=== PATIENT | female | born 1970 | race Caucasian/White ===

== ENCOUNTER 2017-03-02 17:17 | Emergency (ER) | payer BC ==
[~2017-03-02] VITALS: Ht 172.7 cm; Wt 94.3 kg
[2017-03-02] MEDS ORDERED: LIDO:MAALOX:DONNATAL 1:1:1 15 ML SINGLE DOSE SWSW ONE (18:00)
[2017-03-02] MEDS ORDERED: ASPIRIN CHEWABLE 81 MG TABLET. PO ONE (18:00)
[2017-03-02 18:07] LABS: BASO % 1 % (0-3); EOS % 1 % (0-3); HEMATOCRIT 37.9 % (36.0-47.0); HEMOGLOBIN 12.6 g/dL (12.0-15.5); LYMPH # 1.6 x10^3/uL (1.0-4.8); LYMPH % 24 % (24-48); MEAN CORPUSCULAR HEMOGLOBIN 30 pg (25-35); MEAN CORPUSCULAR HGB CONC 33 g/dL (31-37); MEAN CORPUSCULAR VOLUME 90 fL (79-100); MONO % 7 % (0-9); NEUT % 67 % (31-73); PLATELET COUNT 175 x10^3/uL (140-400); RED BLOOD COUNT 4.22 x10^6/uL (3.50-5.40); RED CELL DISTRIBUTION WIDTH 13.8 % (11.5-14.5); WHITE BLOOD COUNT 6.5 x10^3/uL (4.0-11.0)
[2017-03-02 18:17] LABS: CREATININE 0.7 mg/dL (0.6-1.0); GFR 90.5; POTASSIUM 3.4 mmol/L (3.5-5.1)
[2017-03-02 18:25] LABS: ALBUMIN 3.8 g/dL (3.4-5.0); ALBUMIN/GLOBULIN RATIO 1.1 (1.0-1.7); TOTAL BILIRUBIN 0.5 mg/dL (0.2-1.0); TOTAL PROTEIN 7.3 g/dL (6.4-8.2)
[2017-03-02 19:30] VITALS: BP 122/57
--- NOTE | 2017-03-02 19:32 | PHYS DOC ---
Past Medical History Past Medical History: Arthritis Past Surgical History: No Surgical History Alcohol Use: None Drug Use: None Adult General Chief Complaint Chief Complaint: CHEST PAIN HPI HPI Patient is a 46 year old [f__sex] who presents with [] Review of Systems Review of Systems Constitutional: Denies fever or chills [] Eyes: Denies change in visual acuity, redness, or eye pain [] HENT: Denies nasal congestion or sore throat [] Respiratory: Denies cough or shortness of breath [] Cardiovascular: No additional information not addressed in HPI [] GI: Denies abdominal pain, nausea, vomiting, bloody stools or diarrhea [] : Denies dysuria or hematuria [] Musculoskeletal: Denies back pain or joint pain [] Integument: Denies rash or skin lesions [] Neurologic: Denies headache, focal weakness or sensory changes [] Endocrine: Denies polyuria or polydipsia [] Current Medications Current Medications Current Medications Medications (Trade) Dose Ordered Sig/Dulce Start Time Stop Time Status Last Admin Dose Admin Aspirin (Children'S Aspirin) 324 mg 1X ONCE 03/02/17 18:00 03/02/17 18:01 DC 03/02/17 17:59 324 MG Multi-Ingredient Mouthwash/Gargle (Gi Cocktail Single Dose) 15 ml 1X ONCE 03/02/17 18:00 03/02/17 18:01 DC 03/02/17 17:53 15 ML Allergies Allergies Allergies Coded Allergies Type Severity Reaction Last Updated Verified No Known Drug Allergies 03/02/17 No Physical Exam Physical Exam Constitutional: Well developed, well nourished, no acute distress, non-toxic appearance. [] HENT: Normocephalic, atraumatic, bilateral external ears normal, oropharynx moist, no oral exudates, nose normal. [] Eyes: PERRLA, EOMI, conjunctiva normal, no discharge. [] Neck: Normal range of motion, no tenderness, supple, no stridor. [] Cardiovascular:Heart rate regular rhythm, no murmur [] Lungs & Thorax: Bilateral breath sounds clear to auscultation [] Abdomen: Bowel sounds normal, soft, no tenderness, no masses, no pulsatile masses. [] Skin: Warm, dry, no erythema, no rash. [] Back: No tenderness, no CVA tenderness. [] Extremities: No tenderness, no cyanosis, no clubbing, ROM intact, no edema. [] Neurologic: Alert and oriented X 3, normal motor function, normal sensory function, no focal deficits noted. [] Psychologic: Affect normal, judgement normal, mood normal. [] Current Patient Data Vital Signs Vital Signs Date Time Temp Pulse Resp B/P (MAP) Pulse Ox O2 Delivery O2 Flow Rate FiO2 03/02/17 18:00 82 22 156/86 (109) 96 Room Air 03/02/17 17:26 98.8 98.8 Lab Values Laboratory Tests Test 03/02/17 17:30 White Blood Count 6.5 x10^3/uL (4.0-11.0) Red Blood Count 4.22 x10^6/uL (3.50-5.40) Hemoglobin 12.6 g/dL (12.0-15.5) Hematocrit 37.9 % (36.0-47.0) Mean Corpuscular Volume 90 fL (79-100) Mean Corpuscular Hemoglobin 30 pg (25-35) Mean Corpuscular Hemoglobin Concent 33 g/dL (31-37) Red Cell Distribution Width 13.8 % (11.5-14.5) Platelet Count 175 x10^3/uL (140-400) Neutrophils (%) (Auto) 67 % (31-73) Lymphocytes (%) (Auto) 24 % (24-48) Monocytes (%) (Auto) 7 % (0-9) Eosinophils (%) (Auto) 1 % (0-3) Basophils (%) (Auto) 1 % (0-3) Neutrophils # (Auto) 4.4 x10^3uL (1.8-7.7) Lymphocytes # (Auto) 1.6 x10^3/uL (1.0-4.8) Monocytes # (Auto) 0.5 x10^3/uL (0.0-1.1) Eosinophils # (Auto) 0.0 x10^3/uL (0.0-0.7) Basophils # (Auto) 0.0 x10^3/uL (0.0-0.2) D-Dimer (Carmina) 0.38 ug/mlFEU (0.00-0.50) Sodium Level 144 mmol/L (136-145) Potassium Level 3.4 mmol/L (3.5-5.1) L Chloride Level 107 mmol/L (98-107) Carbon Dioxide Level 28 mmol/L (21-32) Anion Gap 9 (6-14) Blood Urea Nitrogen 17 mg/dL (7-20) Creatinine 0.7 mg/dL (0.6-1.0) Estimated GFR (Cockcroft-Gault) 90.5 BUN/Creatinine Ratio 24 (6-20) H Glucose Level 107 mg/dL (70-99) H Calcium Level 9.0 mg/dL (8.5-10.1) Total Bilirubin 0.5 mg/dL (0.2-1.0) Aspartate Amino Transferase (AST) 17 U/L (15-37) Alanine Aminotransferase (ALT) 24 U/L (14-59) Alkaline Phosphatase 67 U/L (46-116) Troponin I Quantitative < 0.017 ng/mL (0.000-0.055) Total Protein 7.3 g/dL (6.4-8.2) Albumin 3.8 g/dL (3.4-5.0) Albumin/Globulin Ratio 1.1 (1.0-1.7) Laboratory Tests 03/02/17 17:30 Laboratory Tests 03/02/17 17:30 EKG EKG [] Radiology/Procedures Radiology/Procedures [] Course & Med Decision Making Course & Med Decision Making Pertinent Labs and Imaging studies reviewed. (See chart for details) [] Dragon Disclaimer Dragon Disclaimer This electronic medical record was generated, in whole or in part, using a voice recognition dictation system. Departure Departure Impression: Primary Impression: Nonspecific chest pain Additional Impression: Pleurisy Disposition: HOME, SELF-CARE Condition: STABLE Referrals: WELLINGTON DURAN APRN (PCP) Patient Instructions: Chest Pain (Nonspecific), Pleurisy Additional Instructions: Her chest pain this evening is pleuritic in nature. This means it's painful with breathing and is often a result of irritation of the lung lining known as the pleura. The remainder of your workup is reassuring today. Take ibuprofen 800 mg every 6 hours as needed for pain. Your EKG indicates the possibility of having previously had an injury to your heart however it is possible that these results are normal for U. Follow-up with your doctor for reevaluation and referral for a stress test as an outpatient. You been given a copy of your EKG to discuss with your doctor and discuss in cardiology referral. Return immediately for new severe or worsening symptoms specifically for exertional chest pain. Take one baby aspirin 81 mg per day until otherwise directed by your doctor Problem Qualifiers THEODORE HIDALGO MD Mar 02, 2017 19:32
--- NOTE | 2017-03-03 06:07 | EKG ---
[facility] [address] [place] [address] Test Date: 2017-03-02 Test Time: 17:25:30 Pat Name: SONIA ANDREA Department: Room: Gender: F Lusterer: : 1970 Requested By: THEODORE HIDALGO Order Number: [id number] Reading MD: Measurements Intervals [place] Rate: 85 P: 40 MN: 138 QRS: 18 QRSD: 92 T: 8 QT: 356 QTc: 429 Interpretive Statements SINUS RHYTHM QRS(T) CONTOUR ABNORMALITY CONSISTENT WITH ANTEROSEPTAL INFARCT PROBABLY OLD RI6.01 Unconfirmed report No previous ECG available for comparison
--- NOTE | 2017-03-03 08:07 | RAD ---
Portable chest, 03/02/2017: History: Chest pain The heart size and pulmonary vascularity are normal. The lungs are clear. There is no evidence of pleural fluid. IMPRESSION: No acute cardiopulmonary abnormality is detected.
== END 2017-03-02 20:03 | disposition home or self-care (01) ==
LOC: ER 17:17
DX: R09.1 Pleurisy (principal); M19.90 Unspecified osteoarthritis, unspecified site
CPT/HCPCS: 36415; 71010; 80053; 84484; 85027; 85379; 93005; 99285-25

== ENCOUNTER → 2017-04-07 | Outpatient (CLI) | payer BC ==
[~2017-04-07] MED LIST: REGADENOSON 0.4 MG/5 ML DISP.SYRIN. IV ONE
--- NOTE | 2017-04-07 13:57 | RAD ---
APPROVED REPORT Test Type: Pharmacological Stress Nurse/Tech: Katherin Salamanca R.N. Test Indications: chest pain Cardiac History: No known cardiac Medications: See Electronic Medical Record Medical History: See Electronic Medical Record Resting ECG: SR w/ inverted T waves in leads III,AVR, AVF, V1,V3-5 Resting Heart Rate: 66 bpm Resting Blood Pressure: 125/80mmHg Pretest Chest Pain: No chest pain Nurse/Tech Notes S1S2, lungs CTA Consent: The procedure was explained to the patient in lay terms. Informed consent was witnessed. Alberto eout was entered into [employer]. History and Stress Test performed by [facility]. Details Pharmacologic stress testing was performed using 0.4mg per 5ml of regadenoson given intravenously ove r 7-10 seconds. Stress Symptoms dyspnea which resolved by the end of recovery period POST EXERCISE Reason for Termination: Infusion complete Max HR: 120 bpm Max Blood Pressure: 151/82mmHg Blood Pressure response to exercise: Normal blood pressure response during stress. Heart Rate response to exercise: wnl Chest Pain: No. Arrhythmia: No. ST Change: Yes. T wave in lead AVR, E3iychfbo and the T waves in leads II,V6. small ST depression in various leads post lexiscan Deviation: mm INTERPRETATION Stress EKG Conclusion: Baseline EKG showed sinus rhythm. Non-diagnostic changes at peak stress. No arrhythmias. Imaging Protocol IMAGE PROTOCOL: Rest Tc-99m/stress Tc-99m 1 day Rest: Stress: Viability: Radiopharm.Tc99m [id number] Sestamibi Dose10.3mCi 34.4mCi Duration 15min. 12min. Img Date 04/07/2017 04/07/2017 Rest Admin Site:IV - Left AntecubitalAdministrator:[facility] Stress Admin Site: IV - Left AntecubitalAdministrator: ED [facility] STRESS DATA End Diast. Vol.116.0mlAv. Heart Rate88.0bpm End Syst. Vol.35.0mlCO Index BSA0.0L/min Myocardial Akqe216.0gEject. Ygrurypq51.0% Stress Rates Pk. Fill Rate4.32EDV/secLVtime Pk. Fill 176.73msec Pk. Empty Rate4.36ESV/secLVtime Pk. Vmbbo799.68msec 1/3 Pk. Fill0.93EDV/sec Stress Scores Regional WT0.00Summed WT0.00 Regional WM0.00Summed WM0.00 Study quality was good. Left Ventricular size was Normal at Rest and Stress. Lung uptake was Normal. Left Ventricular ejection fraction is 70%. The rest and stress images show normal perfusion, normal contraction and thickening. LV Perf. Quant 17 Seg. SSS0.00 17 Seg. SRS0.00 17 Seg. SDS0.00 Stress Defect Extent (% LAD)0.00Rest Defect Extent (% LAD)0.00Rev. Defect Extent (% LAD)0.00 Stress Defect Extent (% LCX) 0.00Rest Defect Extent (% LCX)0.00Rev. Defect Extent (% LCX)0.00 Stress Defect Extent (% RCA)0.00Rest Defect Extent (% RCA)0.00Rev. Defect Extent (% RCA)0.00 Stress Defect Extent (% JOSSY)0.00Rest Defect Extent (% JOSSY)0.00Rev. Defect Extent (% JOSSY)0.00 Conclusion 1. Regadenoson cardioisotope stress test did not show any evidence of ischemia or infarct. 2. Normal left ventricular systolic function with ejection fraction calculated at 70%. 3. Low risk for cardiac events.
== END | disposition home or self-care (01) ==
LOC: NM 09:33
PROVIDERS: ATTEND Internal Medicine Cardiovascular Disease
DX: I49.5 Sick sinus syndrome (principal); R07.9 Chest pain, unspecified
CPT/HCPCS: 78452; 93017; 96374; 96375; 96376; A9500; J2785

== ENCOUNTER → 2017-09-11 | Outpatient (CLI) | payer BC | END | disposition home or self-care (01) | LOC: KCIC MRI 08:26 | DX: M48.02 Spinal stenosis, cervical region (principal); M12.9 Arthropathy, unspecified; M25.78 Osteophyte, vertebrae | CPT/HCPCS: 72141 ==

== ENCOUNTER → 2017-09-26 | Outpatient (CLI) | payer BC | END | disposition home or self-care (01) | LOC: KCIC 15:37 | DX: M25.522 Pain in left elbow (principal) | CPT/HCPCS: 73080 ==

== ENCOUNTER → 2020-03-26 | Outpatient (CLI) | payer BC ==
--- NOTE | 2020-03-26 16:16 | RAD ---
Examination: 1. Bilateral digital diagnostic mammogram. 2. Targeted right axillary ultrasound. INDICATION: 50-year-old woman due for mammographic screening presents with a right axillary lump. COMPARISON: 08/05/2013. TECHNIQUE: CC and MLO views of both breasts were obtained with 2-D technique and a right X CCL view was also obtained. Targeted ultrasound of the right axilla was then performed. FINDINGS: The breasts are composed of scattered fibroglandular densities. There is no dominant mass, suspicious calcification or architectural distortion in either breast. No mammographic correlate to the area of patient reported palpable concern in her right axilla which was marked with a BB and was not successfully included in the [id number]-[id number] on mammogram despite multiple attempts. Targeted ultrasound of the right axilla shows localized thickening of the skin in the right axilla. No adenopathy or mass. IMPRESSION: Negative bilateral mammogram and benign right axillary findings of localized skin thickening, possibly reflecting a sebaceous cyst. Recommend clinical management which may include biopsy if there are any clinically suspicious findings in the opinion of the patient's referring physician. In the absence of a clinically suspicious finding, recommend routine mammographic screening, next due in one year. Discussed with patient. BI-RADS Category 2 Benign findings
== END | disposition home or self-care (01) ==
LOC: MAMMO 13:07
PROVIDERS: ATTEND Nurse Practitioner Family
DX: R92.2 Inconclusive mammogram (principal)
CPT/HCPCS: 76641; 77066

== ENCOUNTER → 2021-03-10 | Outpatient (CLI) | payer BC ==
--- NOTE | 2021-03-10 14:55 | RAD ---
EXAM: Bilateral screening mammogram. HISTORY: 51-year-old female presents for screening mammography. TECHNIQUE: Full-field digital craniocaudal and mediolateral oblique views of both breasts are obtaine d for evaluation. Computer aided detection was applied. COMPARISON: 03/26/2020 BREAST PARENCHYMAL DENSITY: Level B - Scattered fibroglandular densities. FINDINGS: There is no new suspicious mass, microcalcification or region of architectural distortion. IMPRESSION: BI-RADS Category 2: Benign finding(s). RECOMMENDATION: Annual mammography is recommended. Please refer to the separate report for a right ax illary sonogram performed the same date for additional imaging findings. If your mammogram demonstrates that you have dense breast tissue, which could hide abnormalities, and if you have other risk factors for breast cancer that have been identified, you might benefit from s upplemental screening tests that may be suggested by your ordering physician. Dense breast tissue, i n and of itself, is a relatively common condition. This information is not provided to cause undue c oncern, but rather to raise your awareness and to promote discussion with your physician regarding th e presence of other risk factors, in addition to dense breast tissue. A report of your mammography re sults will be sent to you and your physician. You should contact your physician if you have any ques tions or concerns regarding this report. Mammography is a sensitive method for finding small breast cancers, but it does not detect them all a nd is not a substitute for careful clinical examination. A negative mammogram does not negate a clin ically suspicious finding and should not result in delay in biopsying a clinically suspicious abnorma lity. PQRS compliance statement - Patient information was entered into a reminder system with a target due date for the next mammogram. "Our facility is accredited by the [employer] Mammography Program." Electronically signed by: Luann Atkins MD (03/10/2021 2:53 PM) [id number]
--- NOTE | 2021-03-10 14:57 | RAD ---
EXAM: Right axillary sonogram. HISTORY: 51-year-old female presents for follow-up evaluation of a previously described palpable lump within the axilla. The patient no longer palpates a lump in this location. TECHNIQUE: Sonographic imaging of the right axilla was performed. COMPARISON: 03/26/2020. FINDINGS: There is no suspicious finding within the right axilla. Specifically, the previously demons trated 5 mm hypoechoic lesion within the superficial soft tissues at the site of reported prior palpa ble concern is no longer seen. IMPRESSION: 1. Unremarkable right axillary sonogram. The previously demonstrated 5 mm lesion at the site of palpa ble concern is no longer seen and the patient reports no persistent palpable abnormality in this loca tion. 2. BI-RADS Category 2: Benign finding(s). Please refer to the separate report for the screening mammo gram on the same date for additional imaging findings. Electronically signed by: Luann Atkins MD (03/10/2021 2:55 PM) [id number]
== END ==
LOC: MAMMO 14:05
PROVIDERS: ATTEND Nurse Practitioner Family
DX: Z12.31 Encounter for screening mammogram for malignant neoplasm of breast (principal); M79.89 Other specified soft tissue disorders
CPT/HCPCS: 76881; 77067